=== PATIENT | male | born 1960 | race Hispanic/Latino ===

== ENCOUNTER 2024-03-26 16:37 | Emergency (ER) | payer OTHER ==
[~2024-03-26 16:37] MED LIST: Iopamidol-370 76% 500 ML MDV (1 ML CHARGE) ONE
[2024-03-26] MEDS ORDERED: fentaNYL 50 mcg/mL 1 mL Vial ONE (18:29)
[2024-03-26 18:33] LABS: #Basophils 0.04 10x3/uL (0.0-0.2); %Basophils 0.6 % (0.0-1.0); %Eosinophils 2.7 % (0.0-10.0); %Lymphocytes 25.5 % (21.0-51.0); %Monocytes 9.1 % (0.0-10.0); %Neutrophils 61.8 % (42.0-75.0); Hematocrit 42.3 % (42.0-52.0); Hemoglobin 14.1 g/dL (14.0-18.0); Mean Corpuscular HGB CONC 33.3 g/dL (32.0-36.0); Mean Corpuscular Volume 96.1 fL (78.0-98.0); Mean Platelet Volume 9.3 fL (7.4-10.4); Platelet Count 312 10x3/uL (130-400); RBC Distribution Width 12.9 % (11.5-14.5)
[2024-03-26 18:52] LABS: ALT (SGPT) 13 U/L (8-55); AST (SGOT) 14 U/L (5-34); Albumin 3.9 g/dL (3.4-4.8); Alkaline Phosphatase 58 U/L (40-110); Anion Gap 14 mmol/L (10-20); BUN (Urea Nitrogen) 7 mg/dL (8.4-25.7); Bilirubin, Total 0.5 mg/dL (0.2-1.2); Calc. Creatinine Clearance 0 mL/min (70-130); Calcium 8.7 mg/dL (7.8-10.44); Carbon Dioxide 23 mmol/L (23-31); Chloride 105 mmol/L (98-107); Estimated GFR 99; Globulin 2.8 g/dL (2.4-3.5); Glucose 84 mg/dL (80-115); Lipase 18 U/L (8-78); Potassium 3.3 mmol/L (3.5-5.1); Protein, Total 6.7 g/dL (5.8-8.1); Sodium 139 mmol/L (136-145)
[2024-03-26 18:55] LABS: Troponin I Less than 0.010 ng/mL (< 0.028)
[2024-03-26] MEDS ORDERED: Ondansetron PF 4 MG/2 ML Vial ONE (19:40)
== END 2024-03-26 21:03 | disposition home or self-care (01) ==
LOC: ERS 16:37
DX: R51.9 Headache, unspecified (principal); I10 Essential (primary) hypertension; V49.9XXA Car occupant (driver) (passenger) injured in unspecified traffic accident, initial encounter
CPT/HCPCS: 36415; 70450; 71260; 72125; 74177; 80053; 83690; 84484; 85025; 93005; 96374; 96375; J2405; J3010; Q9967

== ENCOUNTER 2025-05-24 12:39 | Observation (INO) | payer BC ==
[2025-05-24] MEDS ORDERED: Iopamidol-370 76% 500 ML MDV (1 ML CHARGE) ONE (12:57)
[2025-05-24] MEDS ORDERED: HYDROmorphone 0.5 MG/0.5 ML SYRINGE ONE ×3 (13:20→15:45)
[2025-05-24] MEDS ORDERED: Ketorolac Tromethamine 30 MG (1 mL) VIAL ONE (13:20)
[2025-05-24] MEDS ORDERED: Ondansetron PF 4 MG/2 ML Vial ONE ×2 (13:20→20:48)
[2025-05-24 14:13] LABS: #Basophils 0.07 10x3/uL (0.0-0.2); #Eosinophils Less than 0.03 10x3/uL (0.0-0.7); #Monocytes 0.87 10x3/uL (0.11-0.59); #Neutrophils 17.04 10x3/uL (1.40-6.50); %Basophils 0.4 % (0.0-1.0); %Eosinophils 0.1 % (0.0-10.0); %Lymphocytes 3.9 % (21.0-51.0); %Monocytes 4.6 % (0.0-10.0); %Neutrophils 90.7 % (42.0-75.0); Hematocrit 42.8 % (42.0-52.0); Hemoglobin 13.9 g/dL (14.0-18.0); Mean Corpuscular Hemoglobin 31.0 pg (27.0-31.0); Mean Corpuscular Volume 95.5 fL (78.0-98.0); Platelet Count 291 10x3/uL (130-400); Red Blood Cell (RBC) Count 4.48 mill/uL (4.70-6.10); White Blood Cell (WBC) Count 18.79 10x3/uL (4.8-10.8)
[2025-05-24 14:17] LABS: ALT (SGPT) 17 U/L (Less than 45); AST (SGOT) 26 U/L (11-34); Albumin 4.0 g/dL (3.1-4.5); Alkaline Phosphatase 62 U/L (40-110); Anion Gap 12 mmol/L (10-20); BUN (Urea Nitrogen) 8 mg/dL (8.4-25.7); Bilirubin, Total 0.5 mg/dL (0.3-1.2); Calc. Creatinine Clearance 0 mL/min (70-130); Calcium 9.0 mg/dL (7.8-10.44); Carbon Dioxide 26 mmol/L (23-31); Chloride 103 mmol/L (98-107); Globulin 2.9 g/dL (2.4-3.5); Glucose 132 mg/dL (80-115); Lipase 34 U/L (8-78); Magnesium 2.2 mg/dL (1.6-2.6); Potassium 3.9 mmol/L (3.5-5.1); Sodium 137 mmol/L (136-145)
[2025-05-24] MEDS ORDERED: hydrALAZINE 20 MG/ML VIAL SLOW IVP PRN (15:30)
[2025-05-24] MEDS ORDERED: Ondansetron PF 4 MG/2 ML Vial IVP PRN ×2 (15:30→21:56)
[2025-05-24] MEDS ORDERED: Dextrose 50% Abboject 50 ML SYRINGE SLOW IVP PRN ×2 (15:30→21:56)
[2025-05-24] MEDS ORDERED: Glucagon 1 MG/ML KIT IM PRN ×2 (15:30→21:56)
[2025-05-24] MEDS: Ketorolac Tromethamine 30 MG (1 mL) VIAL IVP SCH (18:01)
[2025-05-24 18:24] VITALS: BMI 31.1
[2025-05-24] MEDS ORDERED: Bupivacaine 0.25% HCL 30 ML VIAL ONE (20:38)
[2025-05-24] MEDS ORDERED: SUCCINYLCHOLINE/SOD CL,ISO/PF 200 MG/10 ML SYRINGE FS ONE (20:48)
[2025-05-24] MEDS ORDERED: Rocuronium Bromide 10 MG/ML (10ML VIAL) ONE (20:48)
[2025-05-24] MEDS ORDERED: fentaNYL PF 100 MCG/2 ML SYRINGE ONE ×2 (20:48→21:16)
[2025-05-24] MEDS ORDERED: PROPOFOL 20 ML ONE (20:49)
[2025-05-24] MEDS: Famotidine/PF 20 mg/2ml Vial SLOW IVP SCH (21:33)
[2025-05-24] MEDS: Famotidine 20 MG TAB PO SCH (21:33)
[2025-05-24] MEDS ORDERED: SUGAMMADEX SODIUM 200 MG/2 ML VIAL ONE (21:39)
[2025-05-24] MEDS ORDERED: HYDROcodone/Acetaminophen 10/325 mg Tablet PO PRN (21:56)
[2025-05-24] MEDS ORDERED: Calcium Carbonate 500 MG ChewTAB PO PRN (21:56)
[2025-05-24] MEDS: D5 1/2 NS w/20 mEq KCL 1,000 ML IV SCH (22:56)
[2025-05-25 05:34] LABS: #Basophils Less than 0.03 10x3/uL (0.0-0.2); #Eosinophils Less than 0.03 10x3/uL (0.0-0.7); #Monocytes 0.55 10x3/uL (0.11-0.59); #Neutrophils 11.93 10x3/uL (1.40-6.50); %Basophils 0.2 % (0.0-1.0); %Eosinophils 0.0 % (0.0-10.0); %Lymphocytes 4.3 % (21.0-51.0); %Monocytes 4.2 % (0.0-10.0); %Neutrophils 91.0 % (42.0-75.0); Hematocrit 40.8 % (42.0-52.0); Hemoglobin 13.1 g/dL (14.0-18.0); Mean Corpuscular Hemoglobin 30.9 pg (27.0-31.0); Mean Corpuscular Volume 96.2 fL (78.0-98.0); Platelet Count 290 10x3/uL (130-400); Red Blood Cell (RBC) Count 4.24 mill/uL (4.70-6.10); White Blood Cell (WBC) Count 13.11 10x3/uL (4.8-10.8)
[2025-05-25 05:57] LABS: Anion Gap 9 mmol/L (10-20); BUN (Urea Nitrogen) 7 mg/dL (8.4-25.7); Calc. Creatinine Clearance 124 mL/min (70-130); Calcium 8.6 mg/dL (7.8-10.44); Carbon Dioxide 25 mmol/L (23-31); Chloride 107 mmol/L (98-107); Glucose 133 mg/dL (80-115); Potassium 4.2 mmol/L (3.5-5.1); Sodium 137 mmol/L (136-145)
[2025-05-25] MEDS: Lisinopril 5 MG TAB PO SCH (08:40)
[2025-05-25] MEDS: HYDROcodone/Acetaminophen 5/325 mg Tablet PO PRN (08:40)
[2025-05-25] MEDS ORDERED: Famotidine 20 MG TAB PO SCH (09:00)
[2025-05-25] MEDS: Acetaminophen 325 MG TAB PO PRN (11:14)
[2025-05-25 12:34] VITALS: BP 117/72; TEMP 98
[2025-05-25] MEDS ORDERED: Simvastatin 10 MG TAB PO SCH (21:00)
== END 2025-05-25 12:39 | disposition home or self-care (01) ==
LOC: ERS 12:39 → SURG B 15:35
PROVIDERS: ADMIT Surgery; ATTEND Surgery
PROC: 0DTJ4ZZ Resection of Appendix, Percutaneous Endoscopic Approach (ICD-10-PCS; principal; 2025-05-24)
DX: K35.80 Unspecified acute appendicitis (principal); I10 Essential (primary) hypertension; E78.5 Hyperlipidemia, unspecified; Z88.6 Allergy status to analgesic agent; Z79.899 Other long term (current) drug therapy
CPT/HCPCS: 36415; 74177; 80048; 80053; 83690; 83735; 85025; 88304; 96365; 96375; 96376; G0378; J0169; J0665; J1100; J1171; J1885; J2250; J2405; J2543; J2704; J3480; Q9967